=== PATIENT | male | born 1960 | race African-American/Black ===

== ENCOUNTER 2017-07-18 21:12 | Emergency (ER) | payer OTHER ==
[~2017-07-18] VITALS: Ht 167.6 cm; Wt 73.5 kg
[2017-07-18 21:34] VITALS: BP 208/115
[2017-07-18] MEDS ORDERED: oxyCODONE HCL/Acetaminophen 5/325mg ORAL ONE (21:45)
[2017-07-18] MEDS ORDERED: Lisinopril 10mg tab ORAL ONE (21:45)
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
[2017-07-18 21:58] LABS: APPEARANCE,URINE CLEAR; KETONES,URINE NEGATIVE (NEGATIVE); LEUKOCYTE ESTERASE ,URINE NEGATIVE (NEGATIVE); NITRITE,URINE NEGATIVE (NEGATIVE); PH,URINE 6 (4.5-8.0); PROTEIN,URINE NEGATIVE (NEGATIVE); UROBILINOGEN,URINE NORMAL MG/DL (0.0-1.0)
[2017-07-18 22:12] LABS: BACTERIA,URINE OCCASIONAL /HPF; WBC,URINE 0-2 /HPF (0 - 0)
[2017-07-18] MEDS ORDERED: PERCOCET 5-3251 EACH ORAL (22:35)
[2017-07-18] MEDS ORDERED: NORVASC10 MG ORAL (22:35)
[2017-07-18 22:43] VITALS: BP 192/110
== END 2017-07-18 22:43 | disposition home or self-care (01) ==
LOC: EMR 21:25
DX: M75.01 Adhesive capsulitis of right shoulder (principal); I10 Essential (primary) hypertension; Z86.73 Personal history of transient ischemic attack (TIA), and cerebral infarction without residual deficits
CPT/HCPCS: 80307; 81003; 99284